=== PATIENT | female | born 1950 | race Caucasian/White ===

== ENCOUNTER 2024-02-23 21:26 | Inpatient (IN) | payer MEDICARE, MEDICAID ==
[~2024-02-23] VITALS: Ht 152.4 cm; Wt 84.9 kg
[~2024-02-23 21:26] MED LIST: MOTRIN800 MG PO
[2024-02-23 21:34] VITALS: BP 154/90
[2024-02-23 22:10] LABS: BASO % 0.1 % (0.0-1.0); HEMATOCRIT 44.7 % (37.0-47.0); LYMPH # 0.6 10*3/uL (1.3-4.4); LYMPH % 3.7 % (27.0-41.0); MEAN CELL VOLUME 88.3 fl (81.0-99.0); MEAN CORPUSCULAR HGB 29.1 pg (27.0-31.0); MEAN CORPUSCULAR HGB CONC 32.9 g/dl (33.0-37.0); MEAN PLATELET VOLUME 9.9 fl (9.6-12.3); MONO # 1.3 10*3/uL (0.1-1.0); MONO % 7.5 % (3.0-9.0); NEUT # 14.6 10*3/uL (2.3-7.9); NEUT % 87.4 % (47.0-73.0); PLATELET COUNT AUTOMATED 146 10*3/uL (130-400); RED BLOOD COUNT 5.06 10*6/uL (4.10-5.10); RED CELL DISTRI WIDTH 12.7 % (0-14.5); WHITE BLOOD COUNT 16.7 10*3/uL (4.8-10.8)
[2024-02-23 22:37] LABS: ALKALINE PHOSPHATASE 82 U/L (46-116); BUN 11 mg/dl (9-23); CHLORIDE 99 mmol/L (98-107); CPK 257 U/L (34-171); POTASSIUM 3.9 mmol/L (3.4-5.1); SGPT/ALT 22 U/L (5-49); TOTAL PROTEIN 7.6 gm/dL (6.0-8.0)
[2024-02-23 22:42] LABS: ETHYL ALCOHOL < 3.0 mg/dl (<3)
[2024-02-23 22:48] LABS: BILIRUBIN 1+ (Negative); BLOOD Negative (Negative); CLARITY Cloudy (Clear); COLOR Orange (Yellow); GLUCOSE Negative (Negative); KETONE 2+ (Negative); LEUKO ESTERASE Trace (Negative); NITRITE Negative (Negative); PH 6.5 (4.5-8.0); SPECIFIC GRAVITY >= 1.030 (1.001-1.030)
[2024-02-23] MEDS ORDERED: GLUMETZA500 MG PO (22:51)
[2024-02-23] MEDS ORDERED: SERTRALINE HYDR25 MG PO (22:51)
[2024-02-23] MEDS ORDERED: ROSUVASTATIN CA10 MG PO (22:51)
[2024-02-23] MEDS ORDERED: ZESTRIL10 MG PO (22:52)
[2024-02-23 22:56] LABS: URINE AMPHETAMINES Negative (1000ng/ml); URINE BARBITURATES Negative (200ng/ml); URINE BENZODIAZEPINES Negative (200ng/ml); URINE CANNABINOIDS (THC) Negative (50ng/ml); URINE COCAINE Negative (300ng/ml); URINE METHADONE Negative (300ng/ml); URINE OPIATES Negative (300ng/ml); URINE PHENCYCLIDINE Negative (25ng/ml)
[2024-02-23] MEDS ORDERED: SODIUM CHLORIDE 0.9% 1,000 ML IV SCH (23:30)
[2024-02-23] MEDS ORDERED: fentaNYL CITRATE 100 MCG/2 ML VIAL IV ONE (23:45)
[2024-02-24] MEDS ORDERED: Ceftriaxone Sodium 1 GM/10 ML SYR IV ONE (00:45)
[2024-02-24] MEDS ORDERED: Ondansetron Hydrochloride 4 MG/2 ML VIAL IV PRN (02:20)
[2024-02-24] MEDS ORDERED: Acetaminophen/Hydrocodone 5 MG/325 MG TABLET PO PRN (02:20)
[2024-02-24] MEDS ORDERED: MORPHINE Sulfate 2 MG/ML SYR IV PRN (02:20)
[2024-02-24] MEDS ORDERED: Magnesium Hydroxide 30 ML UDC PO PRN (02:20)
[2024-02-24] MEDS ORDERED: ACETAMINOPHEN 325 MG TAB PO PRN (02:20)
[2024-02-24] MEDS ORDERED: ACETAMINOPHEN 650 MG SUPP R PRN (02:20)
[2024-02-24] MEDS ORDERED: BISACODYL 10 MG SUPP R PRN (02:20)
[2024-02-24] MEDS ORDERED: BISACODYL 5 MG TAB PO PRN (02:20)
[2024-02-24] MEDS ORDERED: TEMAZEPAM 15 MG CAP PO PRN (02:20)
[2024-02-24] MEDS ORDERED: Pantoprazole Sodium 40 MG TAB PO PRN (02:30)
[2024-02-24 02:36] VITALS: BP 141/66
[2024-02-24 04:02] VITALS: BP 130/70
[2024-02-24] MEDS ORDERED: SODIUM CHLORIDE 0.9% 1,000 ML IV ONE (04:10)
[2024-02-24] MEDS ORDERED: DEXTROSE 10 % IN WATER 250 ML IV PRN (04:25)
[2024-02-24] MEDS ORDERED: Piperacillin Sodium/Tazobact 50 ML IV ONE (05:50)
[2024-02-24 06:49] LABS: BASO % 0.2 % (0.0-1.0); EOS % 0.1 % (1.0-4.0); LYMPH # 0.9 10*3/uL (1.3-4.4); LYMPH % 6.9 % (27.0-41.0); MEAN CORPUSCULAR HGB 29.2 pg (27.0-31.0); MEAN CORPUSCULAR HGB CONC 32.8 g/dl (33.0-37.0); MEAN PLATELET VOLUME 10.4 fl (9.6-12.3); MONO # 1.4 10*3/uL (0.1-1.0); MONO % 10.6 % (3.0-9.0); NEUT # 10.8 10*3/uL (2.3-7.9); NEUT % 81.4 % (47.0-73.0); PLATELET COUNT AUTOMATED 141 10*3/uL (130-400); RED BLOOD COUNT 4.38 10*6/uL (4.10-5.10); RED CELL DISTRI WIDTH 12.8 % (0-14.5); WHITE BLOOD COUNT 13.2 10*3/uL (4.8-10.8)
[2024-02-24] MEDS ORDERED: INSULIN LISPRO 1 UNIT/0.01 ML SQ SCH (07:30)
[2024-02-24 07:36] LABS: BUN 11 mg/dl (9-23); CHLORIDE 103 mmol/L (98-107); CHOLESTEROL 128 mg/dL (<200); FREE T4 1.26 ng/dl (0.89-1.76); LDL CHOLESTEROL 78 mg/dL (9-159); POTASSIUM 3.4 mmol/L (3.4-5.1); TRIGLYCERIDES 111 mg/dl (<150)
[2024-02-24 07:48] LABS: VITAMIN D, 25-HYDROXY 13.4 ng/mL (30-100)
[2024-02-24 07:50] VITALS: BP 133/95
[2024-02-24] MEDS ORDERED: Enoxaparin Sodium 40 MG/0.4 ML SYR SC SCH (10:00)
[2024-02-24] MEDS ORDERED: NYSTATIN 15 GM BOT T SCH ×2 (10:00→22:00)
[2024-02-24] MEDS ORDERED: Ceftriaxone Sodium 1 GM in SYRINGE INFUSION 10 ML IV SCH (10:00)
[2024-02-24] MEDS ORDERED: Piperacillin Sodium/Tazobact 50 ML IV SCH (12:00)
[2024-02-24 15:50] VITALS: BP 133/61
[2024-02-24 20:01] VITALS: BP 131/65
[2024-02-24] MEDS ORDERED: FOAM BANDAGE 5X5 T ONE (22:36)
[2024-02-24] MEDS ORDERED: FOAM BANDAGE 1 EACH BANDAGE T ONE (22:36)
[2024-02-25 06:17] LABS: BASO % 0.3 % (0.0-1.0); EOS # 0.1 10*3/uL (0.0-0.4); EOS % 1.3 % (1.0-4.0); HEMATOCRIT 39.5 % (37.0-47.0); LYMPH # 1.6 10*3/uL (1.3-4.4); LYMPH % 15.8 % (27.0-41.0); MEAN CELL VOLUME 87.4 fl (81.0-99.0); MEAN CORPUSCULAR HGB CONC 33.2 g/dl (33.0-37.0); MONO # 1.4 10*3/uL (0.1-1.0); MONO % 13.9 % (3.0-9.0); NEUT # 6.9 10*3/uL (2.3-7.9); NEUT % 67.2 % (47.0-73.0); PLATELET COUNT AUTOMATED 148 10*3/uL (130-400); RED BLOOD COUNT 4.52 10*6/uL (4.10-5.10); RED CELL DISTRI WIDTH 12.8 % (0-14.5); WHITE BLOOD COUNT 10.2 10*3/uL (4.8-10.8)
[2024-02-25 06:19] VITALS: BP 164/81
[2024-02-25 06:29] LABS: BUN 10 mg/dl (9-23); CHLORIDE 104 mmol/L (98-107); POTASSIUM 3.5 mmol/L (3.4-5.1)
[2024-02-25] MEDS ORDERED: Enoxaparin Sodium 40 MG/0.4 ML SYR SC SCH (10:00)
[2024-02-25 10:05] VITALS: BP 138/68
[2024-02-25] MEDS ORDERED: Sertraline Hydrochloride 50 MG TAB PO SCH (11:25)
[2024-02-25 14:20] VITALS: BP 146/88
[2024-02-25 17:45] VITALS: BP 143/79
[2024-02-25 20:00] VITALS: BP 166/83
[2024-02-26] VITALS: BP 152/82
[2024-02-26 06:46] LABS: BASO % 0.4 % (0.0-1.0); EOS # 0.3 10*3/uL (0.0-0.4); EOS % 2.8 % (1.0-4.0); HEMATOCRIT 39.2 % (37.0-47.0); LYMPH # 1.9 10*3/uL (1.3-4.4); LYMPH % 21.4 % (27.0-41.0); MEAN CELL VOLUME 89.7 fl (81.0-99.0); MEAN CORPUSCULAR HGB 29.1 pg (27.0-31.0); MEAN CORPUSCULAR HGB CONC 32.4 g/dl (33.0-37.0); MONO # 1.1 10*3/uL (0.1-1.0); MONO % 12.1 % (3.0-9.0); NEUT # 5.5 10*3/uL (2.3-7.9); NEUT % 60.5 % (47.0-73.0); PLATELET COUNT AUTOMATED 159 10*3/uL (130-400); RED BLOOD COUNT 4.37 10*6/uL (4.10-5.10); RED CELL DISTRI WIDTH 12.7 % (0-14.5)
[2024-02-26 07:10] LABS: BUN 7 mg/dl (9-23); CHLORIDE 104 mmol/L (98-107); POTASSIUM 3.4 mmol/L (3.4-5.1)
[2024-02-26 08:00] VITALS: BP 152/74
[2024-02-26 12:00] VITALS: BP 128/75
[2024-02-26 15:23] VITALS: BP 133/78
[2024-02-26 20:00] VITALS: BP 147/84
[2024-02-27] VITALS: BP 159/89
[2024-02-27 06:24] LABS: BASO % 0.3 % (0.0-1.0); EOS # 0.3 10*3/uL (0.0-0.4); EOS % 3.4 % (1.0-4.0); HEMATOCRIT 38.1 % (37.0-47.0); LYMPH # 1.7 10*3/uL (1.3-4.4); LYMPH % 21.8 % (27.0-41.0); MEAN CELL VOLUME 87.2 fl (81.0-99.0); MEAN CORPUSCULAR HGB 29.1 pg (27.0-31.0); MEAN CORPUSCULAR HGB CONC 33.3 g/dl (33.0-37.0); MEAN PLATELET VOLUME 10.2 fl (9.6-12.3); MONO # 0.9 10*3/uL (0.1-1.0); MONO % 11.2 % (3.0-9.0); NEUT # 4.8 10*3/uL (2.3-7.9); NEUT % 60.8 % (47.0-73.0); PLATELET COUNT AUTOMATED 157 10*3/uL (130-400); RED BLOOD COUNT 4.37 10*6/uL (4.10-5.10); RED CELL DISTRI WIDTH 12.6 % (0-14.5); WHITE BLOOD COUNT 7.9 10*3/uL (4.8-10.8)
[2024-02-27 06:53] LABS: ALKALINE PHOSPHATASE 64 U/L (46-116); BUN 6 mg/dl (9-23); CHLORIDE 103 mmol/L (98-107); POTASSIUM 3.5 mmol/L (3.4-5.1); SGPT/ALT 18 U/L (5-49); TOTAL PROTEIN 6.4 gm/dL (6.0-8.0)
[2024-02-27 08:00] VITALS: BP 153/91
[2024-02-27] MEDS ORDERED: Sertraline Hydrochloride 50 MG TAB PO SCH (10:00)
[2024-02-27 16:00] VITALS: BP 140/72
[2024-02-27 20:00] VITALS: BP 158/85
[2024-02-27] MEDS ORDERED: Doxycycline Hyclate 100 MG CAP PO SCH (22:00)
[2024-02-28] VITALS: BP 154/92
[2024-02-28 01:00] VITALS: BP 152/80
[2024-02-28 06:14] LABS: BASO % 0.4 % (0.0-1.0); EOS # 0.4 10*3/uL (0.0-0.4); EOS % 3.7 % (1.0-4.0); HEMATOCRIT 41.2 % (37.0-47.0); LYMPH # 2.1 10*3/uL (1.3-4.4); LYMPH % 21.1 % (27.0-41.0); MEAN CELL VOLUME 90.2 fl (81.0-99.0); MEAN CORPUSCULAR HGB 28.7 pg (27.0-31.0); MEAN CORPUSCULAR HGB CONC 31.8 g/dl (33.0-37.0); MEAN PLATELET VOLUME 9.8 fl (9.6-12.3); MONO % 10.5 % (3.0-9.0); NEUT # 6.2 10*3/uL (2.3-7.9); NEUT % 62.6 % (47.0-73.0); PLATELET COUNT AUTOMATED 175 10*3/uL (130-400); RED BLOOD COUNT 4.57 10*6/uL (4.10-5.10); RED CELL DISTRI WIDTH 12.8 % (0-14.5); WHITE BLOOD COUNT 9.9 10*3/uL (4.8-10.8)
[2024-02-28 06:51] LABS: BUN 6 mg/dl (9-23); CHLORIDE 104 mmol/L (98-107); POTASSIUM 3.6 mmol/L (3.4-5.1)
[2024-02-28 08:00] VITALS: BP 143/77
[2024-02-28 12:00] VITALS: BP 142/84
[2024-02-28] MEDS ORDERED: DOXYCYCLINE MO100 MG PO (13:15)
[2024-02-28] MEDS ORDERED: GLUMETZA500 MG PO (13:15)
[2024-02-28] MEDS ORDERED: NYAMYC15 GM T (13:15)
[2024-02-28] MEDS ORDERED: HYDROCODONE-AC1 EAC1 PO (13:15)
[2024-02-28] MEDS ORDERED: ADMELOG100 UNIT/1 SQ (13:15)
[2024-02-28] MEDS ORDERED: SERTRALINE HYDR50 MG PO (13:15)
== END 2024-02-28 17:52 | DRG 871 ==
LOC: ED 21:26 → EDHOLD 02-24 00:49 → 4E 02-24 00:49
PROVIDERS: Internal Medicine; Nurse Practitioner Family; Student in an Organized Health Care Education/Training Program; ADMIT Internal Medicine; ATTEND Internal Medicine
DX: A41.50 Gram-negative sepsis, unspecified (principal); G93.41 Metabolic encephalopathy; E44.0 Moderate protein-calorie malnutrition; E87.20 Acidosis, unspecified; E87.1 Hypo-osmolality and hyponatremia; K80.10 Calculus of gallbladder with chronic cholecystitis without obstruction; N39.0 Urinary tract infection, site not specified; R65.20 Severe sepsis without septic shock; E78.2 Mixed hyperlipidemia; S31.103A Unspecified open wound of abdominal wall, right lower quadrant without penetration into peritoneal cavity, initial encounter; I45.10 Unspecified right bundle-branch block; E78.81 Lipoid dermatoarthritis; I10 Essential (primary) hypertension; E11.65 Type 2 diabetes mellitus with hyperglycemia; E80.6 Other disorders of bilirubin metabolism; E55.9 Vitamin D deficiency, unspecified; S71.002A Unspecified open wound, left hip, initial encounter; Z96.653 Presence of artificial knee joint, bilateral; Z79.899 Other long term (current) drug therapy; Z79.01 Long term (current) use of anticoagulants; Z68.36 Body mass index [BMI] 36.0-36.9, adult; Z79.2 Long term (current) use of antibiotics; Z81.8 Family history of other mental and behavioral disorders; Z80.8 Family history of malignant neoplasm of other organs or systems; X58.XXXA Exposure to other specified factors, initial encounter; Y93.89 Activity, other specified; Y92.89 Other specified places as the place of occurrence of the external cause; Y99.8 Other external cause status

== ENCOUNTER 2025-01-02 03:34 | Emergency (ER) | payer MEDICARE, MEDICAID ==
[~2025-01-02] VITALS: Ht 149.8 cm; Wt 81.6 kg
[~2025-01-02 03:34] MED LIST changes: +ADMELOG100 UNIT/1 SQ; +DOXYCYCLINE MO100 MG PO; +GLUMETZA500 MG PO; +HYDROCODONE-AC1 EAC1 PO; +NYAMYC15 GM T; +ROSUVASTATIN CA10 MG PO; +SERTRALINE HYDR25 MG PO; +SERTRALINE HYDR50 MG PO; +ZESTRIL10 MG PO
[2025-01-02 03:49] VITALS: BP 163/139
[2025-01-02 04:15] LABS: BASO # 0.0 10*3/uL (0.0-0.1); BASO % 0.3 % (0.0-1.0); EOS # 0.1 10*3/uL (0.0-0.4); EOS % 1.3 % (1.0-4.0); MEAN CELL VOLUME 84.7 fl (81.0-99.0); MEAN CORPUSCULAR HGB 26.9 pg (27.0-31.0); MEAN PLATELET VOLUME 10.0 fl (9.6-12.3); MONO # 0.6 10*3/uL (0.1-1.0); MONO % 7.5 % (3.0-9.0); NEUT # 5.8 10*3/uL (2.3-7.9); NEUT % 74.0 % (47.0-73.0); NUCLEATED RED BLOOD CELL 0.0 % (0.0-0.0); NUCLEATED RED BLOOD CELL 0.0 10*3/uL (0.0-0.0); PLATELET COUNT AUTOMATED 116 10*3/uL (130-400); RED CELL DISTRI WIDTH 13.3 % (0-14.5)
[2025-01-02 04:35] LABS: BUN 5 mg/dl (9-23); CPK 39 U/L (34-171); SGPT/ALT 18 U/L (5-49)
[2025-01-02 04:40] LABS: BILIRUBIN Negative (Negative); BLOOD Negative (Negative); CLARITY Clear (Clear); COLOR Yellow (Yellow); KETONE Negative (Negative); LEUKO ESTERASE 2+ (Negative); NITRITE Negative (Negative); PH 5.5 (4.5-8.0); SPECIFIC GRAVITY 1.020 (1.001-1.030); UROBILINOGEN 0.2 E.U./dl (0.0-1.0)
[2025-01-02 05:13] LABS: BACTERIA 1+; EPITHELIAL CELLS 16-20; WBC 21-30 wbc/hpf (0-5)
[2025-01-02] MEDS ORDERED: Ciprofloxacin Hydrochloride 500 MG TAB PO ONE (05:25)
[2025-01-02] MEDS ORDERED: CIPRO500 MG PO (05:34)
== END 2025-01-02 05:50 | disposition home or self-care (01) ==
LOC: ED 03:34
PROVIDERS: Internal Medicine
DX: N39.0 Urinary tract infection, site not specified (principal); M19.91 Primary osteoarthritis, unspecified site; I10 Essential (primary) hypertension; F32.A Depression, unspecified; Z79.899 Other long term (current) drug therapy; Z88.8 Allergy status to other drugs, medicaments and biological substances